=== PATIENT | female | born 1970 | race Caucasian/White ===

== ENCOUNTER 2021-03-19 13:03 | Day surgery (SDC) | payer BC ==
[~2021-03-19] VITALS: Ht 157.5 cm; Wt 80.7 kg
[2021-03-19] MEDS ORDERED: Estradiol2 MG PO (13:38)
[2021-03-19] MEDS ORDERED: PROG100 PO (13:39)
--- NOTE | 2021-03-19 15:19 | NUR ---
03/19/21 1519 Niall Grady 10ML'S OF 0.5% MARCAINE WITH EPI 1:200,000 INJ INTO OPSITE AT [address] FERREIRA
== END 2021-03-19 16:34 | disposition home or self-care (01) ==
LOC: ORSCSDS 13:03
PROVIDERS: Orthopaedic Surgery
PROC: 0PSH04Z Reposition Right Radius with Internal Fixation Device, Open Approach (ICD-10-PCS; principal; 2021-03-19 14:00)
DX: S52.501A Unspecified fracture of the lower end of right radius, initial encounter for closed fracture (principal); Z87.891 Personal history of nicotine dependence; Z79.899 Other long term (current) drug therapy; E66.9 Obesity, unspecified; Z68.32 Body mass index [BMI] 32.0-32.9, adult
CPT/HCPCS: A9270; C1713; J0171; J0690; J1100; J1885; J2250; J2405; J2704; J3010; J7120

== ENCOUNTER → 2022-12-11 | Outpatient (CLI) | payer OTHER ==
[~2022-12-11] MED LIST: Estradiol2 MG PO; PROG100 PO
[2022-12-14 15:08] LABS: HPV 16 Positive (Negative); HPV 18 Negative (Negative); HPV OTHER HR TYPES Negative (Negative)
== END | disposition home or self-care (01) ==
LOC: LAB 12:52 → LAB SHORT 12:52
PROVIDERS: Obstetrics & Gynecology
DX: Z01.419 Encounter for gynecological examination (general) (routine) without abnormal findings (principal)
CPT/HCPCS: 87624; G0145

== ENCOUNTER 2023-06-04 06:24 | Day surgery (SDC) | payer BC ==
[~2023-06-04] VITALS: Ht 157.5 cm; Wt 92.0 kg
[2023-06-04] MEDS ORDERED: NS 50 ML IV ONE (06:50)
[2023-06-04] MEDS ORDERED: Lactated Ringer's 1,000 ML IV ONE ×2 (06:50→07:19)
[2023-06-04] MEDS ORDERED: CeFAZolin Sodium 2,000 MG VIAL ONE (06:50)
[2023-06-04] MEDS ORDERED: propofoL 20 ML IV ONE (06:51)
[2023-06-04] MEDS ORDERED: FentaNYL Citrate 50 MCG/ML 2 ML Injection ONE ×3 (06:54→08:58)
[2023-06-04] MEDS ORDERED: PROBIOTIC1 EA14 (06:58)
[2023-06-04] MEDS ORDERED: ERGO400 (06:58)
[2023-06-04] MEDS ORDERED: Ropivacaine 0.5% HCl/Pf 5 MG/ML 20ML VIAL ONE (07:16)
[2023-06-04] MEDS ORDERED: Midazolam HCl 1MG / ML 2ML Vial ONE (07:24)
[2023-06-04] MEDS ORDERED: Phenylephrine HCl 100 MCG/ML-NS 10MLSYR (1MG/10ML) ONE (07:39)
[2023-06-04] MEDS ORDERED: Dexamethasone Sod Phos 10 MG/ML 1ML VIAL ONE (07:52)
[2023-06-04] MEDS ORDERED: Ondansetron HCl 2 MG / ML 2ML Vial ONE (07:52)
--- NOTE | 2023-06-04 07:52 | NUR ---
06/04/23 0752 India Johnson 30ML OF ROPIVACAINE 0.5% MIXED AND VERIFIED WITH 0.15ML OF EPI (1MG/ML) TO MAKE ROPIVACAINE 0.5% WTIH EPI 1:200,000 FOR INJECTION AT THE OPSITE BY DR MARADIAGA.
[2023-06-04] MEDS ORDERED: EPINEPhrine HCl 1 MG/ML 1ML Amp XX ONE ×2 (07:57)
[2023-06-04] MEDS ORDERED: HYDROcodone 5-APAP 325 TAB ONE (09:41)
--- NOTE | 2023-06-04 09:45 | NUR ---
06/04/23 0945 ZOHREH VELÁSQUEZ PT DONNA' IS IN WITH PT. PT EATING AND DRINKING WO DIFF. CURRENTLY PAIN IS 3/10
[2023-06-04 09:47] VITALS: BP 114/69
[2023-06-04] MEDS ORDERED: Lidocaine HCl 2% Jelly 120MG/6ML SYR (20MG PER ML) ONE (13:43)
== END 2023-06-04 10:16 | disposition home or self-care (01) ==
LOC: ORSCSDS 06:24
PROVIDERS: Podiatrist Foot & Ankle Surgery
PROC: 0SGL04Z Fusion of Left Tarsometatarsal Joint with Internal Fixation Device, Open Approach (ICD-10-PCS; principal; 2023-06-04 07:30)
PROC: 0QSR04Z Reposition Left Toe Phalanx with Internal Fixation Device, Open Approach (ICD-10-PCS; principal; 2023-06-04 07:30)
DX: M21.612 Bunion of left foot (principal); Z79.899 Other long term (current) drug therapy; E66.9 Obesity, unspecified; Z68.37 Body mass index [BMI] 37.0-37.9, adult; F17.290 Nicotine dependence, other tobacco product, uncomplicated
CPT/HCPCS: A9270; C1713; J0171; J0690; J1100; J2250; J2371; J2405; J2704; J2795; J3010; J7120

== ENCOUNTER → 2023-12-13 | Outpatient (CLI) | payer BC ==
[~2023-12-13] MED LIST changes: +ERGO400; +PROBIOTIC1 EA14
[2023-12-21 16:09] LABS: HPV HIGH RISK BY TMA Detected; HPV SOURCE Cervical/Vag
[2023-12-22 15:06] LABS: HPV GENOTYPE 16 BY TMA Not Detected; HPV GENOTYPE 18/45 BY TMA Not Detected; HPVG SOURCE Cervical/Vag
== END ==
LOC: LAB SHORT 11:56 → LAB 11:56
PROVIDERS: Obstetrics & Gynecology
DX: Z01.419 Encounter for gynecological examination (general) (routine) without abnormal findings (principal)
CPT/HCPCS: 87624; 87625; G0123

== ENCOUNTER → 2024-01-24 | Outpatient (CLI) | payer BC | END | disposition home or self-care (01) | LOC: LAB SHORT 07:59 → LAB 07:59 | DX: R87.810 Cervical high risk human papillomavirus (HPV) DNA test positive (principal) | CPT/HCPCS: 88305 ==